=== PATIENT | male | born 1990 | race African-American/Black ===

== ENCOUNTER 2017-01-04 06:30 | Observation (INO) | payer SELFPAY ==
[~2017-01-04 06:30] MED LIST: BACTRIM DS TAB1 EAC2 PO; DOXY-LEMMON100 MG PO; REGLAN10 MG PO
[2017-01-04 07:16] LABS: BASO % 0.1 % (0-2); HCT-HEMATOCRIT 45.2 % (36.0-53.5); HGB-HEMOGLOBIN 15.8 gm/dl (13.5-17.0); IMMATURE GRANULOCYTES ABSOLUTE 0.07 tho/cmm (0-0.03); IMMATURE GRANULOCYTES PERCENT 0.4 % (0-0.3); LYMPH % 6.2 % (20-45); LYMPH ABSOLUTE COUNT 1.2 tho/cmm (0.8-4.5); MCH (MEAN CORPUSCULAR HGB) 30.4 pg (28.0-32.0); MCV (MEAN CELL VOLUME) 86.9 fl (82.0-96.0); MEAN PLATELET VOLUME 10.6 cmc (9.4-12.4); MONO % 3.7 % (0-12); MONOCYTE ABSOLUTE COUNT 0.7 tho/cmm (0.0-1.2); NEUTROPHIL ABSOLUTE COUNT 16.9 tho/cmm (1.6-8.0); NEUTROPHIL-AUTOMATED 16.9 tho/cmm (1.6-8.0); NEUTROPHILS % 89.6 % (40-80); PLATELET COUNT 313 tho/cmm (150-450); RED CELL DISTRIBUTION WIDTH 13.9 % (12.4-16.4); WHITE BLOOD COUNT 18.8 tho/cmm (4.0-10.0)
[2017-01-04 07:28] LABS: ALBUMIN 4.8 g/dl (3.5-5.0); ALKALINE PHOSPHATASE 79 U/L (33-138); ALT/SGPT 39 U/L (12-78); BILIRUBIN,TOTAL 1.2 mg/dl (0.0-1.5); BLOOD UREA NITROGEN 15 mg/dl (6-24); CALCIUM 9.8 mg/dl (8.5-10.5); CARBON DIOXIDE-VENOUS 20 mmol/L (22-32); CHLORIDE 110 mmol/l (96-110); CREATININE 1.34 mg/dl (0.60-1.30); GLUCOSE 155 mg/dL (70-110); LIPASE 100 U/L (73-393); SODIUM 144 mmol/L (135-145); eGFR VALUE FOR BLACK 83 mL/Min
[2017-01-04 07:39] LABS: ANION GAP 18 mmol/L (0-20)
[2017-01-04 07:40] LABS: AST/SGOT 34 U/L (10-40); POTASSIUM 3.9 mmol/L (3.7-5.1)
[2017-01-04 10:57] LABS: ALCOHOL (ETOH) <10 mg/dl (<10); MAGNESIUM 2.1 mg/dl (1.8-2.6)
[2017-01-04 11:37] LABS: URINE BILIRUBIN NEGATIVE (NEG); URINE BLOOD MODERATE (NEG); URINE GLUCOSE (UA) NEGATIVE (NEG); URINE KETONE MODERATE (NEG); URINE LEUKOCYTE ESTERASE POSITIVE (NEG); URINE NITRITE NEGATIVE (NEG); URINE PROTEIN MODERATE (NEG); URINE SPECIFIC GRAVITY 1.015 (1.003-1.030)
[2017-01-04 11:38] LABS: URINE APPEARANCE CLEAR; URINE COLOR YELLOW
[2017-01-04 12:02] LABS: URINE EPITHELIAL CELLS 0-2 /[HPF] (0-10); URINE RBC 0-2 /[HPF] (0-5)
[2017-01-05 05:32] LABS: BASO % 0.1 % (0-2); EOS % 0.1 % (0-7); HCT-HEMATOCRIT 41.3 % (36.0-53.5); HGB-HEMOGLOBIN 13.5 gm/dl (13.5-17.0); IMMATURE GRANULOCYTES ABSOLUTE 0.05 tho/cmm (0-0.03); IMMATURE GRANULOCYTES PERCENT 0.3 % (0-0.3); LYMPH % 20.4 % (20-45); LYMPH ABSOLUTE COUNT 3.1 tho/cmm (0.8-4.5); MCH (MEAN CORPUSCULAR HGB) 29.4 pg (28.0-32.0); MEAN PLATELET VOLUME 10.4 cmc (9.4-12.4); MONO % 7.9 % (0-12); MONOCYTE ABSOLUTE COUNT 1.2 tho/cmm (0.0-1.2); NEUTROPHIL ABSOLUTE COUNT 10.8 tho/cmm (1.6-8.0); NEUTROPHIL-AUTOMATED 10.8 tho/cmm (1.6-8.0); NEUTROPHILS % 71.2 % (40-80); PLATELET COUNT 219 tho/cmm (150-450); RED BLOOD COUNT 4.59 mil/cmm (4.40-5.70); RED CELL DISTRIBUTION WIDTH 14.2 % (12.4-16.4); WHITE BLOOD COUNT 15.2 tho/cmm (4.0-10.0)
[2017-01-05 05:52] LABS: BLOOD UREA NITROGEN 8 mg/dl (6-24); CALCIUM 8.2 mg/dl (8.5-10.5); CARBON DIOXIDE-VENOUS 28 mmol/L (22-32); CHLORIDE 112 mmol/l (96-110); CREATININE 1.03 mg/dl (0.60-1.30); GLUCOSE 84 mg/dL (70-110); SODIUM 146 mmol/L (135-145); eGFR VALUE FOR BLACK >90 mL/Min
[2017-01-05 05:55] LABS: MCHC MEAN CORPUSCULAR HGB CONC 32.7 % (32.0-36.0)
[2017-01-05 05:56] LABS: ANION GAP 10 mmol/L (0-20); MAGNESIUM 2.2 mg/dl (1.8-2.6); POTASSIUM 3.6 mmol/L (3.7-5.1)
[2017-01-05] MEDS ORDERED: TYLENOL325 M2 PO (11:34)
[2017-01-05] MEDS ORDERED: PROTONIX40 M2 PO (11:35)
[2017-01-05] MEDS ORDERED: MAALOX MAXIMUM355 M1 PO (11:35)
== END 2017-01-05 11:38 ==
LOC: EDMED 06:30 → EMR2 10:33 → CAR1 12:52
PROVIDERS: Emergency Medicine; Internal Medicine; ADMIT Internal Medicine
DX: R10.13 Epigastric pain (principal); R11.2 Nausea with vomiting, unspecified; D72.829 Elevated white blood cell count, unspecified; N28.9 Disorder of kidney and ureter, unspecified; F19.10 Other psychoactive substance abuse, uncomplicated; K21.9 Gastro-esophageal reflux disease without esophagitis; Z87.19 Personal history of other diseases of the digestive system
CPT/HCPCS: G0378; G0480; J1170; J2405; J7030; Q9967